=== PATIENT | male | born 1965 | race Caucasian/White ===

== ENCOUNTER 2022-04-03 09:04 | Day surgery (SDC) | payer OTHER ==
--- NOTE | 2022-04-03 09:12 | HP ---
DATE OF SURGERY: 04/03/2022 HISTORY OF PRESENT ILLNESS: The patient is a 56-year-old was seen by a doctor in [place] and prostate cancer free. The right patient has a right inguinal hernia on exam. He denies any prior prostate surgery in the past. Family history of his mother with polyps. The patient is in need of screening colonoscopy prior to proceeding with repair of right inguinal hernia possible bilateral. PAST MEDICAL HISTORY: Hypertension, hyperlipidemia, seasonal allergies, some reflux. PAST SURGICAL HISTORY: Open heart surgery. Atrial septal defect and ventricular septal defect repair in the past. Bryant procedure in the past. MEDICATIONS: Metoprolol, aspirin, simvastatin, meloxicam, Flonase, Flomax, Nexium. ALLERGIES: NKDA. FAMILY HISTORY: Prostate cancer, heart problems, hypertension. SOCIAL HISTORY: No smoking. He drinks some alcohol but denies abuse. REVIEW OF SYSTEMS: Fourteen systems reviewed. Denied prior prostate surgery. No chest pain or palpitations. Other systems negative or noncontributory as above and per preadmission questionnaire. PHYSICAL EXAMINATION: GENERAL: No acute distress. HEENT: Sclerae nonicteric. NECK: No JVD. CHEST: Equal excursion, nonlabored breathing. CVS: Regular rate and rhythm. ABDOMEN: Soft. He does have right inguinal hernia no prior repair. No peritoneal signs. EXTREMITIES: No significant edema. NEURO: Alert, oriented, moving extremities symmetrically. RECTAL: Deferred timed to endoscopy exam. PSYCH: Appropriate mood and affect. IMPRESSION: Need for screening colonoscopy. General risk of bleeding or infection, risk of bowel injury or perforation, risk of missed or nondiagnosis or incomplete exam possibly requiring barium enema, other studies or procedures, general risk of anesthesia or sedation, risk of bowel prep but not limited to, consent obtained. Will proceed with outpatient screening colonoscopy under MAC anesthesia. At a later date, we will proceed with robotic-assisted right inguinal hernia repair with mesh, possible open possible bilateral. Risks for that procedure explained in detail as well but noted limited to bleeding or infection, risk of trocar injury or hernia, risk of bowel, bladder, blood vessel injury, risk of adhesion or scar formation or obstruction. Remote risk of major bleeding, risk of bladder issue or injury, risk of urinary retention, risk of hematoma or seroma formation, risk of hernia recurrence, general risk of aches, pains, burning or numbness lower abdomen, groin, thigh or scrotal area possibly terminal supervisor or chronic in nature up to 10 to 12%. Remote risk of vas or vascular issue or injury but not limited to, consent obtained. Will proceed with outpatient screening colonoscopy as an outpatient.
[2022-04-03] MEDS ORDERED: Lactated Ringers 1,000 ML IV SCH (10:30)
[2022-04-03] MEDS ORDERED: DIPRIVAN 200 MG/20 ML IV ONE (11:09)
[2022-04-03] MEDS ORDERED: Xylocaine-Mpf 2% 5 Ml Vial ONE (11:09)
[2022-04-03] MEDS ORDERED: Versed 2 MG/2 ML Injection ONE (11:10)
[2022-04-03 12:08] VITALS: PULSE 69; O2SAT 95
[2022-04-03 12:37] VITALS: BP 122/67
--- NOTE | 2022-04-03 15:24 | OP ---
SURGERY DATE/TIME: 04/03/2022 1113 PREOPERATIVE DIAGNOSES: 1) Need for screening colonoscopy. 2) History of hernia in need of repair down the road. POSTOPERATIVE DIAGNOSES: 1) Small early polyp versus hyperplastic lesion sigmoid colon and rectum. 2) Mild diverticulosis left colon. 3) Fair bowel prep. 4) Withdrawal time approximately 10 minutes. 5) ASA Class III. PROCEDURES: 1) Colonoscopy to cecum. 2) Hot biopsy polypectomy small early sigmoid colon polyp versus hyperplastic lesion x4. 3) Hot biopsy polypectomy small early polyp versus hyperplastic lesion rectum x3 removed with hot biopsy forceps. SURGEON: Dr. Eliazar Funez. ANESTHESIA: MAC. ESTIMATED BLOOD LOSS: Minimal. INDICATIONS: As noted above. Risks and benefits explained in detail but not limited to and consent obtained. DESCRIPTION OF PROCEDURE AND FINDINGS: The patient is taken to the endoscopy room. MAC anesthesia induced. After official time out and no disagreement with planned procedure, digital rectal exam did not reveal any rectal masses. Video colonoscope inserted and passed up through the tortuous sigmoid, descending, transverse and ascending colon around to cecum. Appendiceal orifice and ileocecal valve well visualized. Prep overall was fair, a little liquidy semisolid stool just slightly limting the exam for small lesions this is suctioned irrigated out as clear as possible. ASA Class III. The scope is carefully withdrawn over the next 10 minutes. He had a few small diverticula in the left colon. Otherwise four small early polyps versus hyperplastic lesions in the sigmoid colon removed with hot biopsy polypectomy. Good hemostasis noted. Another three removed in the rectum with hot biopsy polypectomy. Good hemostasis noted. The patient tolerated the procedure well. Findings discussed with the family out in the waiting area.
== END 2022-04-03 12:35 | disposition home or self-care (01) ==
LOC: SDC 09:04
PROVIDERS: ATTEND Surgery
DX: Z12.11 Encounter for screening for malignant neoplasm of colon (principal); Z87.19 Personal history of other diseases of the digestive system; K63.5 Polyp of colon; K62.1 Rectal polyp; K57.30 Diverticulosis of large intestine without perforation or abscess without bleeding; Z80.9 Family history of malignant neoplasm, unspecified
CPT/HCPCS: J2250; J2704